=== PATIENT | female | born 1970 | race Caucasian/White ===

== ENCOUNTER → 2017-07-03 | Outpatient (REF) | payer OTHER ==
[~2017-07-03] MED LIST: ACET50TA PO; IBUP80TA PO
== END ==
LOC: M SFHCLERA 16:03
PROVIDERS: ATTEND Nurse Practitioner Family
DX: R30.0 Dysuria (principal)

== ENCOUNTER → 2022-11-07 | Outpatient (CLI) | payer OTHER ==
[~2022-11-07] MED LIST changes: -ACET50TA PO; +MAPA500T2 PO
== END ==
LOC: M WHC 12:39
PROVIDERS: ATTEND Student in an Organized Health Care Education/Training Program
DX: Z12.31 Encounter for screening mammogram for malignant neoplasm of breast (principal); R87.618 Other abnormal cytological findings on specimens from cervix uteri

== ENCOUNTER → 2022-12-21 | Outpatient (CLI) | payer OTHER | LOC: M WHC 11:10 | PROVIDERS: ATTEND Student in an Organized Health Care Education/Training Program | DX: R92.2 Inconclusive mammogram (principal) | CPT/HCPCS: 76642; 77065; G0279 ==